=== PATIENT | female | born 1975 ===

== ENCOUNTER 2019-12-03 07:10 | Day surgery (SDC) | payer OTHER ==
[~2019-12-03 07:10] MED LIST: ASPIR 8181 MG PO
[2019-12-03] MEDS ORDERED: PREMARIN1.25 MG PO (10:23)
[2019-12-03] MEDS ORDERED: AMOX1TAB5 PO (10:23)
[2019-12-03] MEDS ORDERED: IBU600 MG PO (10:23)
== END 2019-12-03 16:35 | disposition home or self-care (01) ==
LOC: CIR.AMB 07:10
PROVIDERS: ATTEND Obstetrics & Gynecology Gynecology
DX: N85.6 Intrauterine synechiae (principal); Z20.828 Contact with and (suspected) exposure to other viral communicable diseases